=== PATIENT | female | born 1995 | race Caucasian/White ===

== ENCOUNTER 2017-07-23 08:48 | Inpatient (IN) | payer MEDICAID ==
[2017-07-23] MEDS ORDERED: LIDOCAINE 1% (MPF) 30 ML INJ INJ (12:00)
[2017-07-23] MEDS ORDERED: OXYTOCIN 30 UNITS/LR 500 ML IV ×2 (12:00→23:00)
[2017-07-23] MEDS ORDERED: IBUPROFEN 600 MG TAB PO (12:00)
[2017-07-23] MEDS ORDERED: BUTORPHANOL 2 MG INJ IV (12:00)
[2017-07-23 14:14] LABS: ADD MAN DIFF? NO
[2017-07-23 14:16] LABS: BASOPHILS % 0.3 % (0.0-2.0); EOSINOPHILS # 0.1 10^3/ul (0.0-0.5); EOSINOPHILS % 0.5 % (0.0-7.0); HEMATOCRIT 30.8 % (37.0-47.0); HEMOGLOBIN 9.6 g/dl (12.0-16.0); LYMPHOCYTES # 2.9 10^3/ul (0.8-2.9); LYMPHOCYTES % 24.8 % (15.0-51.0); MEAN CORPUSCULAR HEMOGLOBIN 27.1 pg (29.0-33.0); MEAN CORPUSCULAR HGB CONC 31.2 g/dl (32.0-37.0); MEAN PLATELET VOLUME 12.9 fl (7.4-10.4); MONOCYTE # 0.6 10^3/ul (0.3-0.9); MONOCYTES % 5.1 % (0.0-11.0); NEUTROPHIL # 8.2 10^3/ul (1.6-7.5); NEUTROPHILS % 68.7 % (39.0-77.0); PLATELET COUNT 204 10^3/UL (140-415); RED BLOOD COUNT 3.54 10^6/ul (4.20-5.40)
[2017-07-23 14:16] LABS: WHITE BLOOD COUNT 11.9 10^3/ul (4.8-10.8)
[2017-07-23] MEDS: LACTATED RINGER'S 1,000 ML IV ×2 (14:25→23:48)
[2017-07-23 14:33] LABS: PROTIME 12.2 Sec (11.9-14.9)
[2017-07-23] MEDS ORDERED: LACTATED RINGER'S 1,000 ML IV (22:37)
[2017-07-23] MEDS ORDERED: OXYCODONE/ACETAMINOPHEN (5/325) TAB PO (23:00)
[2017-07-23] MEDS ORDERED: MISOPROSTOL 200 MCG TAB PR (23:00)
[2017-07-23] MEDS ORDERED: CARBOPROST 250 MCG INJ IM (23:00)
[2017-07-23] MEDS ORDERED: METHYLERGONOVINE 0.2 MG INJ IM (23:00)
[2017-07-24] MEDS: OXYTOCIN 30 UNITS/LR 500 ML IV (04:45)
[2017-07-24] MEDS: SOD CHLORIDE 0.9% 1,000 ML IV ×2 (07:39→16:00)
[2017-07-24 15:09] LABS: RAPID PLASMA REAGIN NONREACTIVE (NR)
[2017-07-24] MEDS: LACTATED RINGER'S 1,000 ML IV ×2 (15:53→23:58)
[2017-07-25] MEDS: BUTORPHANOL 2 MG INJ IV (03:21)
[2017-07-25] MEDS ORDERED: EPHEDrine SULFATE 50 MG/5 ML SYG (07:00)
[2017-07-25] MEDS: SOD CHLORIDE 0.9% 1,000 ML IV ×2 (08:00)
[2017-07-25] MEDS: LACTATED RINGER'S 1,000 ML IV ×3 (08:34→11:43)
[2017-07-25] MEDS ORDERED: OXYTOCIN 30 UNITS/LR 500 ML IV ×4 (10:00→14:30)
[2017-07-25] MEDS: CITRIC ACID/SODIUM CITRATE 15 ML CUP PO (10:02)
[2017-07-25] MEDS ORDERED: morphine SULFATE/PF (10 MG/10 ML) INJ (10:55)
[2017-07-25] MEDS ORDERED: METOCLOPRAMIDE 10 MG INJ (11:05)
[2017-07-25] MEDS ORDERED: KETOROLAC 30 MG INJ (11:05)
[2017-07-25] MEDS ORDERED: ONDANSETRON 4 MG INJ (11:05)
[2017-07-25] MEDS ORDERED: FENTAnyl 50 MCG/ML VIAL (11:27)
[2017-07-25] MEDS: CEFAZOLIN 2 GM/50 ML (PMX) 50 ML IVPB (12:26)
[2017-07-25] MEDS ORDERED: NALOXONE (0.4 MG/ML) INJ IV (12:30)
[2017-07-25] MEDS ORDERED: morphine 4 MG/ML VIAL IV (12:30)
[2017-07-25] MEDS ORDERED: morphine 2 MG INJ IV ×2 (12:30)
[2017-07-25] MEDS ORDERED: ONDANSETRON 4 MG INJ IV ×2 (12:30)
[2017-07-25] MEDS ORDERED: DIPHENHYDRAMINE 50 MG INJ IV ×2 (12:30)
[2017-07-25] MEDS ORDERED: morphine (1 MG/ML) 10ML SYRINGE IV ×2 (12:30)
[2017-07-25] MEDS: OXYTOCIN 30 UNITS/LR 500 ML IV ×4 (12:52→22:27)
[2017-07-25] MEDS: morphine (1 MG/ML) 10ML SYRINGE IV (13:14)
[2017-07-25] MEDS: KETOROLAC 30 MG INJ IV (14:04)
[2017-07-25] MEDS ORDERED: CARBOPROST 250 MCG INJ IM ×2 (14:30)
[2017-07-25] MEDS ORDERED: MISOPROSTOL 200 MCG TAB PR ×2 (14:30)
[2017-07-25] MEDS ORDERED: CEFAZOLIN 1 GM/50 ML (PMX) 50 ML IVPB (14:30)
[2017-07-25] MEDS ORDERED: METHYLERGONOVINE 0.2 MG INJ IM ×2 (14:30)
[2017-07-25] MEDS ORDERED: HYDROCODONE/APAP (5/325) TAB PO (14:30)
[2017-07-25] MEDS: CEFAZOLIN 1 GM/50 ML (PMX) 50 ML IVPB (18:10)
[2017-07-25] MEDS: SENNA/DOCUSATE NA (8.6MG/50MG) TAB PO (21:00)
[2017-07-26] MEDS: LANOLIN 7 GM TUBE TOP (04:26)
[2017-07-26] MEDS: OXYTOCIN 30 UNITS/LR 500 ML IV ×6 (04:28→22:27)
[2017-07-26] MEDS: INFLUENZA VIRUS VACCINE 0.5 ML SYG IM* (07:45)
[2017-07-26] MEDS: SENNA/DOCUSATE NA (8.6MG/50MG) TAB PO ×2 (08:59→20:59)
[2017-07-26] MEDS: KETOROLAC 30 MG INJ IV (08:59)
[2017-07-26 09:13] LABS: ADD MAN DIFF? NO
[2017-07-26 09:16] LABS: HEMATOCRIT 25.5 % (37.0-47.0); MEAN CORPUSCULAR HEMOGLOBIN 26.8 pg (29.0-33.0); MEAN CORPUSCULAR HGB CONC 31.4 g/dl (32.0-37.0); MEAN CORPUSCULAR VOLUME 85.3 fl (82.0-101.0); MEAN PLATELET VOLUME 12.3 fl (7.4-10.4); PLATELET COUNT 193 10^3/UL (140-415); RED BLOOD COUNT 2.99 10^6/ul (4.20-5.40); RED CELL DISTRIBUTION WIDTH 14.5 % (11.5-14.5)
[2017-07-26 09:16] LABS: WHITE BLOOD COUNT 10.2 10^3/ul (4.8-10.8)
[2017-07-26 09:19] LABS: POSITIVE DIFF @See below
[2017-07-26 09:58] LABS: BASOPHILS % 0.3 % (0.0-2.0); EOSINOPHILS # 0.1 10^3/ul (0.0-0.5); EOSINOPHILS % 0.9 % (0.0-7.0); LYMPHOCYTES # 1.7 10^3/ul (0.8-2.9); LYMPHOCYTES % 16.5 % (15.0-51.0); MONOCYTE # 0.9 10^3/ul (0.3-0.9); MONOCYTES % 8.4 % (0.0-11.0); NEUTROPHIL # 7.7 10^3/ul (1.6-7.5); NEUTROPHILS % 73.5 % (39.0-77.0)
[2017-07-26] MEDS: OXYCODONE/ACETAMINOPHEN (5/325) TAB PO ×3 (11:18→20:59)
[2017-07-26] MEDS: IBUPROFEN 600 MG TAB PO ×2 (12:00→14:16)
[2017-07-27] MEDS: IBUPROFEN 600 MG TAB PO ×5 (00:56→23:44)
[2017-07-27] MEDS: OXYTOCIN 30 UNITS/LR 500 ML IV ×6 (02:27→22:27)
[2017-07-27] MEDS: HYDROCODONE/APAP (5/325) TAB PO (09:12)
[2017-07-27] MEDS: SENNA/DOCUSATE NA (8.6MG/50MG) TAB PO ×2 (09:12→21:00)
[2017-07-28] MEDS: OXYTOCIN 30 UNITS/LR 500 ML IV ×2 (02:27→06:27)
[2017-07-28] MEDS: IBUPROFEN 600 MG TAB PO ×2 (06:01→12:07)
[2017-07-28] MEDS: SENNA/DOCUSATE NA (8.6MG/50MG) TAB PO (09:17)
[2017-07-28] MEDS: DIPHTH/TET/ACEL PERTUSS (ADULT) 0.5 ML VIAL IM* (13:05)
== END 2017-07-28 14:30 | disposition home or self-care (01) | DRG 766 ==
LOC: OBT 08:48 → L-D 07-25 11:18 → OBT 11:37 → PP1 07-25 14:48 → L-D 11:44 → PP1 07-25 14:52
PROVIDERS: Obstetrics & Gynecology
PROC: 10D00Z1 Extraction of Products of Conception, Low, Open Approach (ICD-10-PCS; principal; 2017-07-25 11:30)
DX: O36.5930 Maternal care for other known or suspected poor fetal growth, third trimester, not applicable or unspecified (principal); O61.0 Failed medical induction of labor; Z37.0 Single live birth; Z3A.37 37 weeks gestation of pregnancy; Z23 Encounter for immunization
CPT/HCPCS: 76815; 76818; 85025; 85610; 85730; 86592; 86850; 86900; 86901; 88307; 90686; 90715; 99464

== ENCOUNTER 2018-11-27 18:30 | Emergency (ER) | payer MEDICAID ==
[2018-11-27 21:18] LABS: URINE BLOOD (Dip) POC 3+ (NEGATIVE); URINE GLUCOSE (Dip) POC Negative (NEGATIVE); URINE KETONES (Dip) POC Negative (NEGATIVE); URINE LEUKOCYTE EST (Dip) POC 2+ (NEGATIVE); URINE NITRITE (Dip) POC Negative (NEGATIVE); URINE TOTAL PROTEIN POC Negative (NEGATIVE)
[2018-11-27] MEDS: PHENAZOPYRIDINE 100 MG TAB PO (21:36)
[2018-11-27] MEDS: CEPHALEXIN 500 MG CAP PO (21:36)
== END 2018-11-27 21:47 | disposition home or self-care (01) ==
LOC: FTE 18:30
DX: N30.00 Acute cystitis without hematuria (principal)
CPT/HCPCS: 81003; 81025; 99283